=== PATIENT | female | born 1955 | race Caucasian/White ===

== ENCOUNTER 2021-02-28 17:40 | Inpatient (IN) | payer OTHER ==
[~2021-02-28] VITALS: Ht 165.1 cm; Wt 60.3 kg
[2021-02-28] MEDS ORDERED: MAGNESIUM HYDROXIDE 30 ML UDC PO PRN (22:00)
[2021-02-28] MEDS ORDERED: MAG HYDROX/AL HYDROX/SIMETH 30 ML UDC PO PRN (22:00)
[2021-02-28] MEDS ORDERED: ACETAMINOPHEN 325 MG TABLET PO PRN (22:00)
[2021-02-28] MEDS ORDERED: ZOLPIDEM TARTRATE 5 MG TABLET PO PRN (22:00)
[2021-02-28] MEDS ORDERED: BLOOD SUGAR DIAGNOSTIC 1 EACH STRIP IN ONE (22:00)
--- NOTE | 2021-02-28 23:55 | NUR ---
GPS DELICATESSEN CLERK NOTES: PATIENT IS A DIRECT ADMIT FROM [facility]. PATIENT ARRIVED THIS UNIT AT 2125 ON A STRETCHER WITH 2 EMT ESCORT. PATIENT IS ON A 5150 HOLD FOR GD, HOLD WAS PLACED ON 02/28/21 @ 1622. PER HOLD, PATIENT SPOUSE REPORTS PATIENT IS PARANOID, TALKING WITH AIR CONDITIONER ALL NIGHT, THINKS THERE ARE 2 PEOPLE IN THE AIR CONDITIONER. PATIENT STOPPED EATING, ATTEMPTED TO LEAVE HOME WHEN CONFUSED. BELIEVES MORNING IS EVENING AND EVENING IS MORNING AND IS UNABLE TO CARE FOR SELF. UPON FACE TO FACE EVALUATION, PATIENT WAS A/O X2, FLAT AFFECT, CONFUSED, PASSIVE, DISORGANIZED, UNCOOPERATIVE, WITHDRAWN, REFUSED TO TALK TO STAFF, REFUSED TO GET INTO ROOM FOR ADMISSION ASSESSMENT. TELLING STAFF SHE'S EXPECTING SOMEONE TO COME "PICK ME UP" AND ASKING HOW SHE CAN LEAVE THE UNIT TO MEET UP WITH THE PERSON WHO HAS COME TO PICK HER UP. PATIENT REFUSED ACCU CHEK, REFUSED MRSA, REFUSED SKIN ASSESSMENT AND REFUSED TO SIGN ALL ADMISSION PAPER WORKS. PATIENT HAS NO S/S OF DISTRESS, NO C/O OF PAIN. RESPIRATION EVEN AND UNLABORED WITH EQUAL RISE AND FALL OF THE CHEST, ON ROOM AIR. DENIES SI AT THIS TIME. REFUSED PNEUMONIA VACCINATION. PATIENT IS FULLY VACCINATED WITH MODERNA. PATIENT ADVISED OF HER HOLD AND PATIENT RIGHT HANDBOOK AND A GUIDE TO PRESCRIPTION MEDICATIONS GIVEN. PATIENT IS UNDER THE PSYCHIATRIC CARE OF DR FERGUSON AND MEDICAL CARE OF DARRELL RICE. PATIENT BELONGINGS WERE INVENTORIED AND CHECKED FOR CONTRABAND. ALL PATIENT CARE NEEDS HAVE BEEN MET AT THIS TIME. WILL CONTINUE TO MONITOR Q15 FOR SAFETY, MOOD AND BEHAVIOR.
[2021-03-01] MEDS ORDERED: ESCI20TA PO (00:49)
[2021-03-01] MEDS ORDERED: BUSP5TAB3 PO (00:49)
--- NOTE | 2021-03-01 06:50 | NUR ---
RN NOTE PATIENT REFUSED AM LABS DESPITE OF EXPLANATIONS.
[2021-03-01 08:00] VITALS: BP 119/72
[2021-03-01] MEDS: LORAZEPAM 0.5 MG TABLET PO PRN ×2 (09:45→20:29)
--- NOTE | 2021-03-01 09:45 | NUR ---
RN NOTE- PT STRIKING AT DOORS ATTEMPTING TO AWOL. ATIVAN 1 MG GIVEN
[2021-03-01] MEDS: QUETIAPINE FUMARATE 25 MG TABLET PO SCH ×3 (11:08→22:13)
[2021-03-01] MEDS: busPIRone 5 MG TABLET PO SCH ×2 (12:16→16:20)
[2021-03-01] MEDS ORDERED: OLANZAPINE 10 MG VIAL IM STA (14:56)
--- NOTE | 2021-03-01 15:07 | NUR ---
RN NOTE- PT W CONTINUED ATTEMPTS TO AWOL AND ON REDIRECTION STRUCK OUT AT A FEMALE STAFF MEMBER. DR FERGUSON ORDERED ZYPREXA 5 MG IM STAT X ONE DOSE. COMPLIED
[2021-03-01 16:07] VITALS: BP 133/78
[2021-03-01] MEDS: MEMANTINE HCL 5 MG TABLET PO SCH (16:20)
[2021-03-01 20:20] VITALS: BP 143/86
[2021-03-01 20:26] VITALS: BP 143/86
--- NOTE | 2021-03-01 20:32 | NUR ---
GPS RN NOTE: ANXIETY PATIENT NOTED TO BE ANXIOUS, RESTLESS, AGITATED, NOT REDIRECTABLE AT THIS TIME. PRN ATIVAN 1 MG PO ADMINISTERED ORDERED. WILL CONTINUE TO MONITOR.
[2021-03-01] MEDS: DONEPEZIL 5 MG TABLET PO SCH (22:13)
[2021-03-02 06:59] LABS: ALBUMIN 3.6 g/dL (3.4-5.0); BILIRUBIN,TOTAL 0.4 mg/dL (0.2-1.0); CALCIUM, SERUM 8.5 mg/dL (8.5-10.1); CREATININE 0.6 mg/dL (0.6-1.3); POTASSIUM 3.7 mmol/L (3.5-5.1); TOTAL PROTEIN, SERUM 6.3 g/dL (6.4-8.2)
[2021-03-02 08:00] VITALS: BP 138/68
[2021-03-02] MEDS: busPIRone 5 MG TABLET PO SCH ×4 (08:17→16:57)
[2021-03-02] MEDS: QUETIAPINE FUMARATE 25 MG TABLET PO SCH ×5 (08:17→21:35)
[2021-03-02] MEDS: MEMANTINE HCL 5 MG TABLET PO SCH ×3 (08:18→16:57)
[2021-03-02 16:00] VITALS: BP 125/76
--- NOTE | 2021-03-02 16:57 | NUR ---
Pt. refused take meds due for 1699, explained on the importance and offered 3x and still refusing and said I won't take those.
[2021-03-02 20:00] VITALS: BP 148/91
[2021-03-02] MEDS: DONEPEZIL 5 MG TABLET PO SCH ×2 (21:10→21:35)
[2021-03-03 08:00] VITALS: BP 127/69
[2021-03-03] MEDS: busPIRone 5 MG TABLET PO SCH ×5 (08:43→17:01)
[2021-03-03] MEDS: MEMANTINE HCL 5 MG TABLET PO SCH ×4 (08:43→17:01)
[2021-03-03] MEDS: QUETIAPINE FUMARATE 25 MG TABLET PO SCH ×5 (08:44→21:10)
--- NOTE | 2021-03-03 09:49 | NUR ---
Pt. refused to take due meds, explained on the importance and offered 3x and still refusing and saying she is tired and had a bad dreams.
--- NOTE | 2021-03-03 10:39 | NUR ---
Dr. Roman in the unit and after he spoke to the pt., she agreed to take the meds.
--- NOTE | 2021-03-03 12:53 | NUR ---
Yaw Bond with the tel# of [phone] gave a verbal consent to disclose information the daughter Stefany Deleon with the tel# of [phone].
--- NOTE | 2021-03-03 13:26 | NUR ---
Refused to take Buspar due for 1300, explained on the importance and offered 3x and still refusing and said I don't trust people.
[2021-03-03 16:00] VITALS: BP 153/89
--- NOTE | 2021-03-03 16:25 | NUR ---
INITIAL ASSESSMENT: [employer] assessment completed today. Voicemail message left for patient's daughter Maggie, asking for a call back in order to begin discussing discharge plans.
--- NOTE | 2021-03-03 16:36 | NUR ---
Family Contact/ DC plan: ANETTE received call from daughter, Deloris Deleon [phone] stating hat she would like this pt. to be discharged to a memory care unit and if Form 602 can be completed for this reason. ANETTE filed form 602 in chart for MD to complete. ANETTE addressed the family's questions. ANETTE will follow up as needed.
[2021-03-03] MEDS: ENSURE ENLIVE 237 ML LIQUID (VANILLA) PO SCH (17:20)
[2021-03-03 20:05] VITALS: BP 123/76
[2021-03-03] MEDS: DONEPEZIL 5 MG TABLET PO SCH (21:09)
[2021-03-04 08:00] VITALS: BP 122/75
[2021-03-04] MEDS: QUETIAPINE FUMARATE 25 MG TABLET PO SCH ×3 (08:33→21:41)
[2021-03-04] MEDS: busPIRone 5 MG TABLET PO SCH ×3 (08:33→17:43)
[2021-03-04] MEDS: MEMANTINE HCL 5 MG TABLET PO SCH ×2 (08:33→17:43)
[2021-03-04] MEDS: ENSURE ENLIVE 237 ML LIQUID (VANILLA) PO SCH ×2 (08:34→17:41)
[2021-03-04 16:00] VITALS: BP 119/71
[2021-03-04 20:00] VITALS: BP 135/88
[2021-03-04 20:30] VITALS: BP 135/88
[2021-03-04] MEDS: DONEPEZIL 5 MG TABLET PO SCH (21:41)
--- NOTE | 2021-03-05 05:04 | NUR ---
RN NOTES: -MEDS COMPLIANT,ASLEEP AT SHORT INTERVALS, NO PERIODS OF TRYING TO AWOL, COOPERATIVE,NO PERIODS OF AGITATION.
[2021-03-05 08:00] VITALS: BP 122/51
[2021-03-05] MEDS: MEMANTINE HCL 5 MG TABLET PO SCH ×2 (08:41→18:00)
[2021-03-05] MEDS: ENSURE ENLIVE 237 ML LIQUID (VANILLA) PO SCH ×2 (08:41→18:00)
[2021-03-05] MEDS: busPIRone 5 MG TABLET PO SCH ×3 (08:42→18:00)
[2021-03-05] MEDS: QUETIAPINE FUMARATE 25 MG TABLET PO SCH ×3 (08:42→22:11)
[2021-03-05] MEDS: LORAZEPAM 0.5 MG TABLET PO PRN (12:47)
[2021-03-05 16:00] VITALS: BP 125/79
[2021-03-05 20:00] VITALS: BP 121/74
[2021-03-05] MEDS: DONEPEZIL 5 MG TABLET PO SCH (22:12)
[2021-03-06 08:00] VITALS: BP 107/59
[2021-03-06] MEDS: QUETIAPINE FUMARATE 25 MG TABLET PO SCH ×4 (08:33→22:00)
[2021-03-06] MEDS: MEMANTINE HCL 5 MG TABLET PO SCH ×2 (08:33→17:07)
[2021-03-06] MEDS: busPIRone 5 MG TABLET PO SCH ×3 (08:33→17:07)
[2021-03-06] MEDS: ENSURE ENLIVE 237 ML LIQUID (VANILLA) PO SCH ×3 (08:33→17:07)
--- NOTE | 2021-03-06 09:00 | NUR ---
RN NOTE- RECEIVED PT RESTING COMFORTABLY IN HER BED. AMBULATORY .VSS. DAILY MEDS COMPLIANT. NO ACUTE DISTRESS NOTED.ALL NEEDS ATTENDED AND ANTICIPATED. WILL CONTINUE TO MONITOR Q15MIN FOR SAFETY AND BEHAVIOR
[2021-03-06 16:00] VITALS: BP 154/77
[2021-03-06 20:00] VITALS: BP 118/76
[2021-03-06] MEDS: DONEPEZIL 5 MG TABLET PO SCH ×2 (21:07→22:00)
--- NOTE | 2021-03-06 22:00 | NUR ---
GPS RN NOTE PT QUICKLY HIDE THE MEDS AND SIT ON IT, REFUSED TO GET UP TO SHOW MEDS. AFTER FEW TRIES RETERIVE THE HS MEDS. PT CONTINUE TO REFUSE X 3 TO TAKE THEM. CHARGE NURSE INFORMED AND WASTED THE MEDS.
[2021-03-07 08:00] VITALS: BP 137/79
[2021-03-07] MEDS: ENSURE ENLIVE 237 ML LIQUID (VANILLA) PO SCH ×2 (08:36→17:03)
[2021-03-07] MEDS: busPIRone 5 MG TABLET PO SCH ×3 (08:37→17:03)
[2021-03-07] MEDS: MEMANTINE HCL 5 MG TABLET PO SCH ×2 (08:37→17:03)
[2021-03-07] MEDS: QUETIAPINE FUMARATE 25 MG TABLET PO SCH ×3 (08:37→21:34)
--- NOTE | 2021-03-07 09:00 | NUR ---
RN NOTE- RECEIVED PT RESTING COMFORTABLY IN HER BED. AMBULATORY .VSS. MED COMPLIANT AT PRESENT . NO ACUTE DISTRESS NOTED.ALL NEEDS ATTENDED AND ANTICIPATED. WILL CONTINUE TO MONITOR Q15MIN FOR SAFETY AND BEHAVIOR
--- NOTE | 2021-03-07 12:43 | NUR ---
SNF referral: ANETTE faxed clinicals to [facility] FAX: [phone]; tel: [phone]
--- NOTE | 2021-03-07 12:44 | NUR ---
SNF referral: ANETTE faxed clinical[facility] FAX: [phone]; tel: [phone]
--- NOTE | 2021-03-07 12:44 | NUR ---
SNF referral: ANETTE faxed clinicals to [facility] FAX: [phone]; tel: [phone]
--- NOTE | 2021-03-07 13:52 | NUR ---
Probable cause hearing: Pt.'s 5250 hold was upheld on the grounds of gravely disabled.
[2021-03-07 16:00] VITALS: BP 148/90
[2021-03-07 19:55] VITALS: BP 139/95
[2021-03-07 20:00] VITALS: BP 139/95
[2021-03-07] MEDS: DONEPEZIL 5 MG TABLET PO SCH (21:24)
[2021-03-08 08:00] VITALS: BP 123/70
[2021-03-08] MEDS: ENSURE ENLIVE 237 ML LIQUID (VANILLA) PO SCH ×2 (08:13→16:30)
[2021-03-08] MEDS: QUETIAPINE FUMARATE 25 MG TABLET PO SCH ×3 (08:15→21:28)
[2021-03-08] MEDS: MEMANTINE HCL 5 MG TABLET PO SCH ×2 (08:15→16:32)
[2021-03-08] MEDS: busPIRone 5 MG TABLET PO SCH ×3 (08:15→16:32)
[2021-03-08 16:00] VITALS: BP 143/87
--- NOTE | 2021-03-08 16:42 | NUR ---
SNF referral: S notified by Dr. Roman that the pt,;s daughter is requesting referral to [facility] [[address], [address]]. ANETTE faxed clinicals to [facility] TEL:[phone] fax:[phone]. ANETTE will follow up as needed.
[2021-03-08 20:10] VITALS: BP 149/71
[2021-03-08] MEDS: DONEPEZIL 5 MG TABLET PO SCH (21:28)
[2021-03-09 08:00] VITALS: BP 126/76
[2021-03-09] MEDS: MEMANTINE HCL 5 MG TABLET PO SCH ×2 (08:39→16:57)
[2021-03-09] MEDS: busPIRone 5 MG TABLET PO SCH ×3 (08:39→16:57)
[2021-03-09] MEDS: QUETIAPINE FUMARATE 25 MG TABLET PO SCH ×3 (08:39→21:11)
[2021-03-09] MEDS: ENSURE ENLIVE 237 ML LIQUID (VANILLA) PO SCH ×2 (08:40→16:57)
--- NOTE | 2021-03-09 10:29 | NUR ---
D/C Planning: ANETTE received call from Rimma [phone] from [facility] [[address], [address]] TEL:[phone] fax:[phone] stating that they want to do a nurse to nurse report over the phone for this pt. for possible admission. Noted. ANETTE informed [employer] police department secretary.
[2021-03-09 16:00] VITALS: BP 125/67
[2021-03-09 20:41] VITALS: BP 126/63
[2021-03-09] MEDS: DONEPEZIL 5 MG TABLET PO SCH (21:11)
[2021-03-10 08:00] VITALS: BP 123/73
[2021-03-10] MEDS: busPIRone 5 MG TABLET PO SCH ×3 (08:29→16:24)
[2021-03-10] MEDS: ENSURE ENLIVE 237 ML LIQUID (VANILLA) PO SCH ×2 (08:30→16:25)
[2021-03-10] MEDS: MEMANTINE HCL 5 MG TABLET PO SCH ×2 (08:30→16:24)
[2021-03-10] MEDS: QUETIAPINE FUMARATE 25 MG TABLET PO SCH ×3 (08:30→21:47)
[2021-03-10 16:29] VITALS: BP 125/66
[2021-03-10 21:36] VITALS: BP 149/76
[2021-03-10] MEDS: DONEPEZIL 5 MG TABLET PO SCH (21:46)
[2021-03-11 08:00] VITALS: BP 120/79
[2021-03-11] MEDS: ENSURE ENLIVE 237 ML LIQUID (VANILLA) PO SCH ×2 (08:15→16:46)
[2021-03-11] MEDS: busPIRone 5 MG TABLET PO SCH ×3 (08:15→16:45)
[2021-03-11] MEDS: MEMANTINE HCL 5 MG TABLET PO SCH ×2 (08:15→16:45)
[2021-03-11] MEDS: QUETIAPINE FUMARATE 25 MG TABLET PO SCH ×3 (08:15→21:35)
[2021-03-11 16:00] VITALS: BP 138/74
[2021-03-11 20:10] VITALS: BP 101/49
[2021-03-11 20:11] VITALS: BP 101/49
[2021-03-11] MEDS: DONEPEZIL 5 MG TABLET PO SCH (21:35)
--- NOTE | 2021-03-11 21:40 | NUR ---
RN NOTE PATIENT'S VITALS ARE 131/74, 66, 18, 98.6, 97% AT RA. NO ACUTE CHANGES NOTED. OFFERED SCHEDULED MEDICATIONS, TOLERATED WELL. WILL CONTINUE TO MONITOR.
[2021-03-11 21:45] VITALS: BP 131/74
[2021-03-12 08:00] VITALS: BP 123/70
[2021-03-12] MEDS: ENSURE ENLIVE 237 ML LIQUID (VANILLA) PO SCH ×2 (08:13→16:37)
[2021-03-12] MEDS: busPIRone 5 MG TABLET PO SCH ×3 (08:19→16:38)
[2021-03-12] MEDS: MEMANTINE HCL 5 MG TABLET PO SCH ×2 (08:19→16:38)
[2021-03-12] MEDS: QUETIAPINE FUMARATE 25 MG TABLET PO SCH ×3 (08:19→21:34)
[2021-03-12] MEDS: LORAZEPAM 0.5 MG TABLET PO PRN (08:20)
[2021-03-12 16:00] VITALS: BP 120/78
[2021-03-12 20:00] VITALS: BP 111/71
[2021-03-12] MEDS: DONEPEZIL 5 MG TABLET PO SCH (21:34)
--- NOTE | 2021-03-13 06:45 | NUR ---
RN NOTE PATIENT SLEPT WELL AT NIGHT.
[2021-03-13] MEDS: ENSURE ENLIVE 237 ML LIQUID (VANILLA) PO SCH ×2 (08:07→16:02)
[2021-03-13] MEDS: busPIRone 5 MG TABLET PO SCH ×3 (08:08→16:02)
[2021-03-13] MEDS: MEMANTINE HCL 5 MG TABLET PO SCH ×2 (08:08→16:02)
[2021-03-13] MEDS: QUETIAPINE FUMARATE 25 MG TABLET PO SCH ×3 (08:08→21:40)
[2021-03-13 08:23] VITALS: BP 121/75
--- NOTE | 2021-03-13 13:51 | NUR ---
SS Note: SW notified by admission coordinator at [facility] that they are not accepting this pt.
--- NOTE | 2021-03-13 13:52 | NUR ---
SNF Referral: ANETTE faxed clinicals to [facility] FAX: [phone] PHONE:[phone]
--- NOTE | 2021-03-13 14:27 | NUR ---
D/C Planning: ANETTE received call from Rimma [phone] from [facility] [[address], [address]] TEL:[phone] fax:[phone] stating that they assessed this pt. this morning and they have accepted pt. and family has agreed to payment. Pt. to be discharged tomorrow at 1 pm; Form 602 & chest x-rays needs to be completed by and fax to [phone] . Per Renetta Blanton will pick up operator the pt. at 1 pm on 03/14/2021. ANETTE informed charge nurse of possible discharge.
[2021-03-13 16:26] VITALS: BP 127/74
[2021-03-13 20:00] VITALS: BP 118/61
[2021-03-13] MEDS: DONEPEZIL 5 MG TABLET PO SCH (21:40)
[2021-03-14] MEDS: ENSURE ENLIVE 237 ML LIQUID (VANILLA) PO SCH (07:32)
[2021-03-14 08:00] VITALS: BP 125/92
[2021-03-14] MEDS: MEMANTINE HCL 5 MG TABLET PO SCH (08:36)
[2021-03-14] MEDS: QUETIAPINE FUMARATE 25 MG TABLET PO SCH (08:36)
[2021-03-14] MEDS: busPIRone 5 MG TABLET PO SCH ×2 (08:36→13:12)
--- NOTE | 2021-03-14 10:41 | NUR ---
Family Contact/ D/C Planning: SW contacted pt's daughter, Deloris Deleon [phone] and left a voicemail, notifying her that the pt will be D/C to [facility] [[address] [place] [address], [place] [address]] today.
--- NOTE | 2021-03-14 11:49 | NUR ---
Utilization Review Note Left clinical review for Elizabeth BanksRalph ([phone]) at [employer]. Auth. [id number].
--- NOTE | 2021-03-14 15:00 | NUR ---
PT DISCHARGED TO [facility] ([address] [place] [address] ) AT 1500. TRANSPORTATION PROVIDED BY [facility]. PT'S DAUGHTER LOTTIE NIXON [phone] IS IN AGREEMENT WITH DISCHARGE. PT ALERT AND ORIENTED X3 AT PRESENT TIME. PT IS WELL GROOMED. PT DENIES BOTH SUICIDAL AND HOMICIDAL IDEATION WELL AUDITORY AND VISUAL HALLUCINATIONS AT PRESENT TIME. PT AMBULATORY WITH STEADY GAIT. ALL BELONGINGS RETURNED: 1 PAJAMA PANTS, 1 T-SHIRT, PT WEARING ROTH WRISTWATCH, PT WEARING 2 ROTH RINGS, ONE IN EACH HAND. MULTI DISCIPLINARY EXIT CARE DONE, SIGNED AND GIVEN TO PT AND [facility]. PRESCRIPTIONS INCLUDED IN DISCHARGE PACKET. PT ESCORTED VIA WHEELCHAIR TO MAIN LOBBY TO [facility].
--- NOTE | 2021-03-14 15:05 | NUR ---
Discharge Note: Pt. was discharged to [facility] [[address] [place] [address] ] at 3 pm. [facility] provided transportation via shuttle from the facility. The pt.s daughter, Deloris Deleon [phone] is agreeable to discharge date. Pt. appeared to be alert and oriented x3 & appeared well-groomed. Pt denies both suicidal and homicidal ideation as well as auditory and visual hallucinations. Pt. appeared to be ambulatory with steady gait. Pt. will be seen by psychiatrist, Dr. Spencer & plugger worker, Dr. Bañuelos at the facility. The Choice of vendor form and the multidisciplinary exit care form was done, printed, signed, and given to the patient.
--- NOTE | 2021-03-15 08:58 | NUR ---
Utilization Review Note Received message from Magdaleno who authorized 03/07 through 03/13 with authorization [id number].
== END 2021-03-14 15:00 | DRG 885 ==
LOC: GPS 21:17
PROVIDERS: ADMIT Psychiatry & Neurology Psychiatry; ATTEND Internal Medicine
DX: F29 Unspecified psychosis not due to a substance or known physiological condition (principal); F03.91 Unspecified dementia, unspecified severity, with behavioral disturbance; F23 Brief psychotic disorder; F41.9 Anxiety disorder, unspecified; F32.9 Major depressive disorder, single episode, unspecified; Z73.6 Limitation of activities due to disability; M62.81 Muscle weakness (generalized); Z20.822 Contact with and (suspected) exposure to COVID-19
CPT/HCPCS: 36415; 71045-TC; 80053-TC; 80061-TC; J3490